=== PATIENT | female | born 1960 | race Hispanic/Latino ===

== ENCOUNTER 2022-11-13 15:04 | Inpatient (IN) | payer OTHER ==
[~2022-11-13] VITALS: Ht 154.9 cm; Wt 69.4 kg
[2022-11-13] MEDS ORDERED: MORPHINE 2 MG SYG IVP ONE (17:30)
[2022-11-13] MEDS ORDERED: ONDANSETRON 4MG INJ IVP ONE (17:30)
[2022-11-13 22:39] LABS: APPEARANCE,URINE CLEAR (CLEAR); BILIRUBIN,URINE NEGATIVE (NEGATIVE); GLUCOSE, URINE (UA) NEGATIVE (NEGATIVE); KETONES,URINE NEGATIVE (NEGATIVE); LEUKOCYTE ESTERASE ,URINE 25 Leu/uL (NEGATIVE); NITRATE,URINE NEGATIVE (NEGATIVE); OCCULT BLOOD,URINE SMALL (NEGATIVE); PROTEIN,URINE NEGATIVE (NEGATIVE); UROBILINOGEN,URINE 0.2 mg/dL (0.2-1.0)
[2022-11-13 22:42] LABS: COLOR,URINE Light-Yellow (YELLOW)
[2022-11-13 22:44] LABS: MUCUS,URINE RARE LPF (None Seen); RBC,URINE 0-1 /HPF (0-1)
[2022-11-13] MEDS ORDERED: ONDANSETRON 4MG INJ IV PRN (23:00)
[2022-11-13] MEDS: 0.9%NACL 1000ML 1,000 ML IV SCH (23:00)
[2022-11-13] MEDS ORDERED: ACETAMINOPHEN 325 MG TAB PO PRN ×2 (23:00)
[2022-11-13] MEDS ORDERED: MORPHINE 4 MG SYG IV PRN (23:00)
[2022-11-13] MEDS ORDERED: MORPHINE 2 MG SYG IV PRN (23:00)
[2022-11-13 23:16] LABS: BASOPHILS % (AUTO) 0.3 % (0.0-5.0); EOSINOPHILS % (AUTO) 0.6 % (0.0-8.0); HEMATOCRIT 34.9 % (36-48); LYMPHOCYTES % (AUTO) 32.9 % (21.0-51.0); MEAN CORPUSCULAR HEMOGLOBIN 31.7 pg (27.0-33.0); MEAN CORPUSCULAR HGB CONC 32.1 g/dL (32.0-36.0); MEAN CORPUSCULAR VOLUME 98.9 fL (79-99); MONOCYTES % (AUTO) 7.2 % (3.0-13.0); NEUTROPHILS % (AUTO) 58.7 % (40.0-77.0); PLATELET COUNT (AUTO) 202 K/uL (130-400); RED BLOOD CELL COUNT(AUTO) 3.53 MIL/uL (4.00-5.50); RED CELL DISTRIBUTION WIDTH 13.5 % (11.0-15.5); WHITE BLOOD COUNT (AUTO) 6.4 K/uL (4.8-10.8)
[2022-11-13 23:26] LABS: CREATININE 0.9 mg/dL (0.5-1.5); POTASSIUM 3.7 mmol/L (3.5-5.1)
[2022-11-13 23:31] LABS: ALBUMIN 3.6 g/dL (3.5-5.0); TOTAL PROTEIN, SERUM 6.9 g/dL (6.0-8.3)
[2022-11-13 23:34] LABS: INR 0.93 (0.85-1.15); PROTHROMBIN TIME 10.6 SEC (9.6-11.6)
[2022-11-14 01:30] VITALS: BP 155/80
[2022-11-14] MEDS ORDERED: [UNRECOGNIZED DRUG - OTHER] PO (01:34)
[2022-11-14] MEDS ORDERED: [UNRECOGNIZED DRUG - OTHER] PO (01:34)
[2022-11-14] MEDS ORDERED: GABA-529 PO (01:34)
[2022-11-14] MEDS ORDERED: ANASTRAZOLE (01:35)
[2022-11-14 04:00] VITALS: BP 141/80
[2022-11-14 05:03] LABS: BASOPHILS % (AUTO) 0.3 % (0.0-5.0); EOSINOPHILS % (AUTO) 0.5 % (0.0-8.0); MEAN CORPUSCULAR HEMOGLOBIN 31.9 pg (27.0-33.0); MEAN CORPUSCULAR HGB CONC 31.7 g/dL (32.0-36.0); MEAN CORPUSCULAR VOLUME 100.6 fL (79-99); MONOCYTES % (AUTO) 5.8 % (3.0-13.0); NEUTROPHILS % (AUTO) 66.9 % (40.0-77.0); PLATELET COUNT (AUTO) 222 K/uL (130-400); RED BLOOD CELL COUNT(AUTO) 3.48 MIL/uL (4.00-5.50); RED CELL DISTRIBUTION WIDTH 13.2 % (11.0-15.5); WHITE BLOOD COUNT (AUTO) 6.2 K/uL (4.8-10.8)
[2022-11-14 05:13] LABS: INR 0.93 (0.85-1.15); PROTHROMBIN TIME 10.7 SEC (9.6-11.6)
[2022-11-14 05:14] LABS: PARTIAL THROMBOPLASTIN TIME 28.5 SEC (26.3-35.5)
[2022-11-14 05:25] LABS: CREATININE 0.8 mg/dL (0.5-1.5); PHOSPHORUS 4.4 mg/dL (2.5-4.9); POTASSIUM 3.7 mmol/L (3.5-5.1)
[2022-11-14 08:00] VITALS: BP 143/83
[2022-11-14] MEDS: FAMOTIDINE 20MG VIAL IV SCH (08:53)
[2022-11-14] MEDS ORDERED: HEPARIN 5,000 UNIT VIAL SQ SCH (09:00)
[2022-11-14 11:35] VITALS: BP 133/76
[2022-11-14 16:00] VITALS: BP 148/74
[2022-11-14 20:00] VITALS: BP 139/73
[2022-11-14] MEDS: 0.9%NACL 1000ML 1,000 ML IV SCH (20:20)
[2022-11-15] VITALS (26 sets, daily range): BP systolic 133–167; BP diastolic 76–101
[2022-11-15] MEDS: 0.9%NACL 1000ML 1,000 ML IV SCH ×3 (00:56→19:30)
[2022-11-15 05:23] LABS: BASOPHILS % (AUTO) 0.3 % (0.0-5.0); EOSINOPHILS % (AUTO) 1.2 % (0.0-8.0); HEMATOCRIT 35.6 % (36-48); LYMPHOCYTES % (AUTO) 21.7 % (21.0-51.0); MEAN CORPUSCULAR HEMOGLOBIN 31.4 pg (27.0-33.0); MEAN CORPUSCULAR HGB CONC 32.3 g/dL (32.0-36.0); MEAN CORPUSCULAR VOLUME 97.3 fL (79-99); MONOCYTES % (AUTO) 6.5 % (3.0-13.0); NEUTROPHILS % (AUTO) 69.9 % (40.0-77.0); PLATELET COUNT (AUTO) 221 K/uL (130-400); RED BLOOD CELL COUNT(AUTO) 3.66 MIL/uL (4.00-5.50); RED CELL DISTRIBUTION WIDTH 13.2 % (11.0-15.5); WHITE BLOOD COUNT (AUTO) 6.7 K/uL (4.8-10.8)
[2022-11-15 05:45] LABS: ALBUMIN 3.4 g/dL (3.5-5.0); CREATININE 0.8 mg/dL (0.5-1.5); POTASSIUM 3.3 mmol/L (3.5-5.1); TOTAL PROTEIN, SERUM 7.2 g/dL (6.0-8.3)
[2022-11-15] MEDS ORDERED: MAGNESIUM 2GM PREMIX 50ML 50 ML IV PRN (08:00)
[2022-11-15] MEDS ORDERED: POTASSIUM CHLORIDE 20MEQ/100ML 100 ML IV PRN ×2 (08:00→19:30)
[2022-11-15] MEDS: FAMOTIDINE 20MG VIAL IV SCH (08:51)
[2022-11-15] MEDS ORDERED: DEXAMETHASONE SOD PHOSPHATE 10MG/ML 1ML VIAL ONE (15:09)
[2022-11-15] MEDS ORDERED: LIDOCAINE PF 100MG/5ML (2%) SYRINGE 5ML ONE (15:09)
[2022-11-15] MEDS ORDERED: PROPOFOL 10 MG/ML 20ML VIAL IV ONE (15:09)
[2022-11-15] MEDS ORDERED: SUCCINYLCHOLINE CHLORIDE 20 MG/ML 10 ML VIAL ONE (15:09)
[2022-11-15] MEDS ORDERED: ONDANSETRON 4MG INJ ONE (15:09)
[2022-11-15] MEDS ORDERED: MIDAZOLAM HCL 1 MG/ML 2ML VIAL ONE (15:10)
[2022-11-15] MEDS ORDERED: GLYCOPYRROLATE 1 MG/5 ML SYRINGE ONE (15:10)
[2022-11-15] MEDS ORDERED: ROCURONIUM 10MG/1ML SYR 10 MG/ML ML ONE ×2 (15:10→17:22)
[2022-11-15] MEDS ORDERED: FENTANYL CITRATE PF 50 MCG/1 ML 2ML VIAL ONE ×2 (15:10→16:29)
[2022-11-15] MEDS ORDERED: NEOSTIGMINE 5MG/5ML SYR IV ONE (15:10)
[2022-11-15] MEDS ORDERED: ROPIVACAINE 0.5% 5MG/ML 30ML IJ ONE ×2 (15:16→15:19)
[2022-11-15] MEDS ORDERED: ALBUMIN (HUMAN) 5% 250 ML IV ONE (15:26)
[2022-11-15] MEDS ORDERED: CEFAZOLIN SODIUM 2 GM VIAL IVPB ONE (15:35)
[2022-11-15] MEDS ORDERED: CEFAZOLIN SODIUM 1 GM VIAL ONE (16:10)
[2022-11-15] MEDS ORDERED: TRANEXAMIC ACID 1000MG/10ML ONE (16:22)
[2022-11-15] MEDS ORDERED: MEPERIDINE-PF 25 MG/ML SYG ONE ×2 (19:09→19:19)
[2022-11-15] MEDS ORDERED: CALCIUM CARB 500MG PO PRN (19:30)
[2022-11-15] MEDS ORDERED: ONDANSETRON 4MG INJ IVP PRN (19:30)
[2022-11-15] MEDS ORDERED: POTASSIUM CHLORIDE 10% ELIXIR 20 MEQ/15 ML UDCUP PO PRN (19:30)
[2022-11-15] MEDS ORDERED: CYCLOBENZAPRINE HCL 10 MG TABLET PO PRN (19:30)
[2022-11-15] MEDS ORDERED: KETOROLAC 15MG/ML VIAL (15MG/ML) IV PRN (19:30)
[2022-11-15] MEDS ORDERED: HYDROCODONE/ACETAMINOPHEN 5/325 MG TAB PO PRN (19:30)
[2022-11-15] MEDS ORDERED: KCL 20 MEQ ERTAB PO PRN (19:30)
[2022-11-15] MEDS ORDERED: FERROUS FUMARATE 324 MG TABLET PO PRN (19:30)
[2022-11-15] MEDS: KETOROLAC 15MG/ML VIAL (15MG/ML) IV SCH (19:42)
[2022-11-15] MEDS: GABAPENTIN 100 MG CAPSULE PO SCH (21:00)
[2022-11-15] MEDS: DOCUSATE SODIUM 100 MG CAP PO SCH (21:00)
[2022-11-15] MEDS: CEFAZOLIN SODIUM 2 GM VIAL IVPB SCH (23:41)
[2022-11-16 00:50] VITALS: BP 144/88
[2022-11-16] MEDS: 0.9%NACL 1000ML 1,000 ML IV SCH ×2 (03:34→03:35)
[2022-11-16] MEDS: KETOROLAC 15MG/ML VIAL (15MG/ML) IV SCH ×2 (03:37→11:27)
[2022-11-16 04:13] VITALS: BP 155/90
[2022-11-16 06:21] LABS: BASOPHILS % (AUTO) 0.1 % (0.0-5.0); HEMATOCRIT 30.7 % (36-48); LYMPHOCYTES % (AUTO) 12.9 % (21.0-51.0); MEAN CORPUSCULAR HEMOGLOBIN 31.8 pg (27.0-33.0); MEAN CORPUSCULAR HGB CONC 32.9 g/dL (32.0-36.0); MEAN CORPUSCULAR VOLUME 96.5 fL (79-99); MONOCYTES % (AUTO) 7.7 % (3.0-13.0); NEUTROPHILS % (AUTO) 78.9 % (40.0-77.0); PLATELET COUNT (AUTO) 208 K/uL (130-400); RED BLOOD CELL COUNT(AUTO) 3.18 MIL/uL (4.00-5.50); RED CELL DISTRIBUTION WIDTH 13.1 % (11.0-15.5); WHITE BLOOD COUNT (AUTO) 7.3 K/uL (4.8-10.8)
[2022-11-16 06:43] LABS: ALBUMIN 3.3 g/dL (3.5-5.0); CREATININE 0.7 mg/dL (0.5-1.5); POTASSIUM 3.6 mmol/L (3.5-5.1); TOTAL PROTEIN, SERUM 6.6 g/dL (6.0-8.3)
[2022-11-16 08:00] VITALS: BP 155/75
[2022-11-16] MEDS ORDERED: GUAIFENESIN-DM 200/20 MG 10 ML PO PRN ×2 (10:30)
[2022-11-16] MEDS: GABAPENTIN 100 MG CAPSULE PO SCH ×3 (10:33→20:12)
[2022-11-16] MEDS: DOCUSATE SODIUM 100 MG CAP PO SCH ×3 (10:33→21:00)
[2022-11-16] MEDS: POLYETHYLENE GLYCOL 3350 17 GM POWD.PACK PO SCH (10:34)
[2022-11-16] MEDS: FAMOTIDINE 20MG VIAL IV SCH (10:34)
[2022-11-16] MEDS: CEFAZOLIN SODIUM 2 GM VIAL IVPB SCH (10:34)
[2022-11-16 12:00] VITALS: BP 120/72
[2022-11-16 16:00] VITALS: BP 122/68
[2022-11-16 20:00] VITALS: BP 125/67
[2022-11-16] MEDS ORDERED: GABAPENTIN 100 MG CAPSULE PO SCH (21:00)
[2022-11-17] VITALS: BP 122/70
[2022-11-17 04:00] VITALS: BP 110/59
[2022-11-17 05:17] LABS: BASOPHILS % (AUTO) 0.2 % (0.0-5.0); EOSINOPHILS % (AUTO) 0.6 % (0.0-8.0); HEMATOCRIT 27.6 % (36-48); LYMPHOCYTES % (AUTO) 26.8 % (21.0-51.0); MEAN CORPUSCULAR HEMOGLOBIN 31.8 pg (27.0-33.0); MEAN CORPUSCULAR HGB CONC 32.6 g/dL (32.0-36.0); MEAN CORPUSCULAR VOLUME 97.5 fL (79-99); MONOCYTES % (AUTO) 9.4 % (3.0-13.0); NEUTROPHILS % (AUTO) 62.8 % (40.0-77.0); PLATELET COUNT (AUTO) 171 K/uL (130-400); RED BLOOD CELL COUNT(AUTO) 2.83 MIL/uL (4.00-5.50); RED CELL DISTRIBUTION WIDTH 13.8 % (11.0-15.5); WHITE BLOOD COUNT (AUTO) 6.4 K/uL (4.8-10.8)
[2022-11-17 05:34] LABS: ALBUMIN 2.9 g/dL (3.5-5.0); CREATININE 0.8 mg/dL (0.5-1.5); POTASSIUM 3.8 mmol/L (3.5-5.1); TOTAL PROTEIN, SERUM 6.1 g/dL (6.0-8.3)
[2022-11-17 08:00] VITALS: BP 130/71
[2022-11-17] MEDS: POLYETHYLENE GLYCOL 3350 17 GM POWD.PACK PO SCH (08:01)
[2022-11-17] MEDS: DOCUSATE SODIUM 100 MG CAP PO SCH (08:01)
[2022-11-17] MEDS ORDERED: [UNRECOGNIZED DRUG - OTHER] PO SCH (09:00)
[2022-11-17] MEDS: FAMOTIDINE 20MG VIAL IV SCH (09:00)
[2022-11-17] MEDS: GABAPENTIN 100 MG CAPSULE PO SCH (09:02)
[2022-11-17] MEDS ORDERED: ACET-2079 PO (10:04)
[2022-11-17] MEDS ORDERED: ASPI-1026 PO (10:04)
[2022-11-17] MEDS ORDERED: DOCU-116 PO (10:04)
[2022-11-18] MEDS ORDERED: BISACODYL 10 MG SUPP.RECT RC PRN (19:30)
== END 2022-11-17 13:15 | disposition home or self-care (01) | DRG 522 ==
LOC: EDH 15:04 → EDHIP 15:05 → 4AH 11-14 01:26
PROVIDERS: ADMIT Internal Medicine; ATTEND Internal Medicine
PROC: 0SRB0JZ Replacement of Left Hip Joint with Synthetic Substitute, Open Approach (ICD-10-PCS; principal; 2022-11-15 15:31)
DX: S72.012A Unspecified intracapsular fracture of left femur, initial encounter for closed fracture (principal); D62 Acute posthemorrhagic anemia; C50.911 Malignant neoplasm of unspecified site of right female breast; Z20.822 Contact with and (suspected) exposure to COVID-19; E87.6 Hypokalemia; W01.0XXA Fall on same level from slipping, tripping and stumbling without subsequent striking against object, initial encounter; Z79.811 Long term (current) use of aromatase inhibitors; Z85.3 Personal history of malignant neoplasm of breast; Z90.13 Acquired absence of bilateral breasts and nipples; Y93.89 Activity, other specified; Y92.89 Other specified places as the place of occurrence of the external cause; Y99.8 Other external cause status
CPT/HCPCS: 36415; 71045; 73502; 73503; 73700; 80048; 80053; 81001; 83735; 84100; 84484; 85025; 85610; 85730; 86850; 86900; 86901; 87635; 93005; 97039; C1776; G0378; J0330; J0690; J1100; J1885; J2001; J2175; J2250; J2270; J2405; J2704; J2710; J2795; J3010; J3475; J3480; J3490; J7030; P9045